=== PATIENT | female | born 2000 ===

== ENCOUNTER → 2021-10-14 | Outpatient (CLI) | payer SELFPAY ==
[2021-10-15 10:07] LABS: Candida species (DNA Probe) Negative (NEGATIVE); G. vaginalis (DNA Probe) Positive (NEGATIVE); T. vaginalis (DNA Probe) Negative (NEGATIVE)
== END | disposition home or self-care (01) ==
LOC: LAB SHORT 10:30
PROVIDERS: Family Medicine
DX: R10.30 Lower abdominal pain, unspecified (principal)
CPT/HCPCS: 87480; 87510; 87660